=== PATIENT | male | born 1935 | race Caucasian/White ===

== ENCOUNTER 2023-01-30 16:27 | Emergency (ER) | payer BC ==
[~2023-01-30] VITALS: Ht 165.1 cm; Wt 81.6 kg
[2023-01-30 16:45] VITALS: BP_SYST 130
[2023-01-30] MEDS ORDERED: BACITRACIN 1 GM OINT TP ONE (16:54)
[2023-01-30 17:07] VITALS: BP_SYST 130
== END 2023-01-30 17:07 | disposition home or self-care (01) ==
LOC: SED 16:27
DX: S61.306A Unspecified open wound of right little finger with damage to nail, initial encounter (principal); Z79.899 Other long term (current) drug therapy; X58.XXXA Exposure to other specified factors, initial encounter; Y93.9 Activity, unspecified; Y92.89 Other specified places as the place of occurrence of the external cause; Y99.8 Other external cause status
CPT/HCPCS: 99283

== ENCOUNTER 2023-05-07 19:24 | Emergency (ER) | payer BC, OTHER ==
[~2023-05-07] VITALS: Ht 165.1 cm; Wt 81.6 kg
[2023-05-07 19:33] VITALS: BP_SYST 143; PULSE 70; RESP 18; TEMP 98.2; O2SAT 93
[2023-05-07 20:48] LABS: BASOPHILS % (AUTO) 0.7 % (0.0-2.0); EOSINOPHILS # (AUTO) 0.2 K/uL (0.0-0.4); EOSINOPHILS % (AUTO) 3.6 % (0.0-4.0); HEMOGLOBIN 11.8 g/dL (14.0-18.0); LYMPHOCYTES # (AUTO) 1.9 K/uL (1.0-5.5); LYMPHOCYTES % (AUTO) 33.4 % (20.5-51.5); MEAN CORPUSCULAR HEMOGLOBIN 32 pg (27-31); MEAN CORPUSCULAR HGB CONC 33 % (32-36); MEAN CORPUSCULAR VOLUME 97 fL (79.0-98.0); MONOCYTES # (AUTO) 0.5 K/uL (0.0-1.0); MONOCYTES % (AUTO) 9.7 % (1.7-9.3); NEUTROPHILS % (AUTO) 52.6 % (40.0-70.0); PLATELET COUNT (AUTO) 136 K/uL (130-430); RED CELL DISTRIBUTION WIDTH 13.7 % (9.0-15.0); WHITE BLOOD COUNT (AUTO) 5.6 K/uL (4.8-10.8)
[2023-05-07 21:03] LABS: ANION GAP 6 (5-15); CALCIUM 8.7 mg/dL (8.4-11.0); CARBON DIOXIDE 27 mmol/L (23-29); CHLORIDE 102 mmol/L (98-107); CREATININE 0.77 mg/dL (0.55-1.30); GLUCOSE 100 mg/dL (74-106); SODIUM SERUM 135 mmol/L (136-145); UREA NITROGEN, BLOOD 14 mg/dL (8-21)
[2023-05-07 21:07] LABS: PROTHROMBIN TIME 10.4 SECS (9.5-12.5)
[2023-05-07 22:25] LABS: BILIRUBIN,URINE NEGATIVE (NEGATIVE); CLARITY/URINE Clear (CLEAR); GLUCOSE,URINE NEGATIVE (NEGATIVE); NITRITE, URINE NEGATIVE (NEGATIVE); PH,URINE 6.5 (5.0-8.0); PROTEIN URINE NEGATIVE (NEGATIVE); UROBILINOGEN,URINE 0.2 (0.2-1.0)
[2023-05-07 23:04] VITALS: BP_SYST 142; PULSE 66; RESP 18; TEMP 98.3; O2SAT 97
[2023-05-07 23:05] LABS: KETONES,URINE NEGATIVE (NEGATIVE)
[2023-05-07 23:06] LABS: BLOOD, URINE TRACE (NEGATIVE); COLOR,URINE STRAW (YELLOW); LEUKOCYTE ESTERASE ,URINE NEGATIVE (NEGATIVE)
[2023-05-07 23:14] LABS: BACTERIA,URINE RARE /HPF (None Seen); MUCUS,URINE None Seen /LPF (None Seen); RBC,URINE 0-3 /HPF (0-3); WBC,URINE NONE SEEN /HPF (0-3)
== END 2023-05-07 23:04 | disposition home or self-care (01) ==
LOC: SED 19:24
DX: G45.9 Transient cerebral ischemic attack, unspecified (principal); R51.9 Headache, unspecified; R47.81 Slurred speech; I10 Essential (primary) hypertension; Z79.899 Other long term (current) drug therapy
CPT/HCPCS: 36415; 70450-TC; 71045; 76376; 80048; 81000; 81003; 82962; 84484; 85025; 85610-TC; 85730-TC; 93005; 99285